=== PATIENT | male | born 1985 | race Caucasian/White ===

== ENCOUNTER 2019-11-07 09:20 | Inpatient (IN) | payer OTHER ==
[2019-11-07] MEDS ORDERED: SODIUM CHLORIDE 0.9% 1,000 ML IV ONE (09:23)
[2019-11-07] MEDS ORDERED: ONDANSETRON 4 MG/2 ML VIAL IVP STA (09:24)
[2019-11-07 09:32] LABS: Basophils % (A) 0 %; Eosinophils # (A) 0.3 k/uL (0-0.7); Eosinophils % (A) 1 %; HCT 49.8 % (39.0-53.0); HGB 17.3 gm/dL (13.0-17.5); Lymphocytes # (A) 2.3 k/uL (1.0-4.8); Lymphocytes % (A) 10 %; MCH 29.7 pg (25.0-35.0); MCHC 34.8 g/dL (31.0-37.0); MCV 85.3 fL (80.0-100.0); Monocytes # (A) 2.1 k/uL (0-1.0); Monocytes % (A) 9 %; Neutrophils # (A) 18.5 k/uL (1.3-7.7); Neutrophils % (A) 79 %; Platelet Count 276 k/uL (150-450); RBC 5.84 m/uL (4.30-5.90); RDW 12.9 % (11.5-15.5); WBC 23.5 k/uL (3.8-10.6)
[2019-11-07] MEDS ORDERED: LORazepam 2 MG/ML INJ IV STA (09:32)
[2019-11-07] MEDS ORDERED: TRIMETHOBENZAMIDE 100 MG/ML 2 ML VIAL IM STA (09:32)
[2019-11-07 09:45] LABS: Ionized Calcium 3.3 mg/dL (4.5-5.3)
[2019-11-07 09:59] LABS: Albumin 5.2 g/dL (3.5-5.0); Calcium 8.9 mg/dL (8.4-10.2); Magnesium 1.3 mg/dL (1.6-2.3); Total Bilirubin 1.4 mg/dL (0.2-1.3); Total Protein 8.6 g/dL (6.3-8.2)
[2019-11-07] MEDS ORDERED: CALCIUM GLUCONATE 2 GM in SODIUM CHLORIDE 0.9% 100 ML IVPB ONE (10:00)
[2019-11-07] MEDS ORDERED: NALOXONE 0.4 MG/ML 1 ML VIAL IV PRN (10:44)
--- NOTE | 2019-11-07 10:44 | ED ---
Nausea/Vomiting/Diarrhea HPI - General Chief complaint: Nausea/Vomiting/Diarrhea Stated complaint: Dehydration Time Seen by Provider: 11/07/19 09:25 Source: patient, EMS Mode of arrival: EMS Limitations: no limitations - History of Present Illness Initial comments: The patient is a 34-year-old male with past history of reflux presents to the emergency room and stating that he had nausea and vomiting for the past 3-4 days. States it's been so severe that he cannot count how many episodes he has had. Denies eating any tainted foods. No sick contacts with similar symptoms. The patient does have contractures of his bilateral upper extremities. Reports to diffuse muscle pain however denies any abdominal pain. No associated diarrhea. Denies hematemesis. Reports to a previous episode in the past which was similar in nature. She required hospitalization in [place] for low calcium. States he had contractures at that time as well. Patient cannot provide any additional history as he is a poor historian. Patient arrives diaphoretic. Denies any chest pain or shortness of breath. Denies dysuria, hematuria or difficult voiding. There are no alleviating, precipitating or modifying factors - Related Data Home Medications Medication Instructions Recorded Confirmed No Known Home Medications 11/07/19 11/07/19 Allergies Allergy/AdvReac Type Severity Reaction Status Date / Time No Known Allergies Allergy Verified 11/07/19 10:52 Review of Systems ROS Statement: Those systems with pertinent positive or pertinent negative responses have been documented in the HPI. ROS Other: All systems not noted in ROS Statement are negative. Past Medical History Past Medical History: GERD/Reflux History of Any Multi-Drug Resistant Organisms: None Reported Past Surgical History: No Surgical Hx Reported Past Psychological History: No Psychological Hx Reported Smoking Status: Current every day smoker Past Alcohol Use History: None Reported Past Drug Use History: Marijuana General Exam Limitations: no limitations General appearance: alert, in distress, other (diaphoretic) Eye exam: Present: normal appearance, PERRL, EOMI. Absent: scleral icterus, conjunctival injection, periorbital swelling ENT exam: Present: normal exam, mucous membranes moist Neck exam: Present: normal inspection. Absent: tenderness, meningismus, lymphadenopathy Respiratory exam: Present: normal lung sounds bilaterally. Absent: respiratory distress, wheezes, rales, rhonchi, stridor Cardiovascular Exam: Present: normal rhythm, tachycardia GI/Abdominal exam: Present: soft, normal bowel sounds. Absent: distended, tenderness, guarding, rebound, rigid Extremities exam: Present: other (contractures bilateral upper extremities) Back exam: Present: normal inspection Neurological exam: Present: alert, oriented X3, CN II-XII intact Skin exam: Present: warm, diaphoretic Course Vital Signs 11/07/19 11/07/19 11/07/19 09:23 09:26 10:48 Temperature 98.8 F Pulse Rate 134 H 111 H 89 Respiratory 18 16 16 Rate Blood Pressure 151/81 155/90 139/85 O2 Sat by Pulse 98 98 99 Oximetry 11/07/19 11/07/19 11:44 13:02 Temperature Pulse Rate 87 85 Respiratory 16 18 Rate Blood Pressure 142/90 140/91 O2 Sat by Pulse 96 97 Oximetry Medical Decision Making - Medical Decision Making The patient placed in room 2. Peripheral IV had been established by EMS is given a liter of normal saline. 12-lead EKG performed. Laboratory studies performed which are remarkable for white count of 23,000. Sodium 132. Chloride 75. Lactic acid 7.2 ionized calcium 3.3. Magnesium 1.3. CK is 2440. Patient was given 1 mg of Ativan followed by 2 g of IV calcium gluconate. Patient also provided with 2 g of magnesium. Revaluation the patient instructed to his heart rate has normalized. Patient states he feels much better and contractures are relaxing. I did recommend hospital admission for continued electrolyte replacement and fluid hydration. Patient did agree to this. Discussed case with Dr. Epperson who accepted admission. Patient is pending a bed on the floor - Lab Data Result diagrams: 11/08/19 06:25 11/08/19 06:25 Lab Results 11/07/19 11/07/19 11/07/19 Range/Units 09:23 09:23 09:23 WBC 23.5 H (3.8-10.6) k/uL RBC 5.84 (4.30-5.90) m/uL Hgb 17.3 (13.0-17.5) gm/dL Hct 49.8 (39.0-53.0) % MCV 85.3 (80.0-100.0) fL MCH 29.7 (25.0-35.0) pg MCHC 34.8 (31.0-37.0) g/dL RDW 12.9 (11.5-15.5) % Plt Count 276 (150-450) k/uL Neutrophils % 79 % Lymphocytes % 10 % Monocytes % 9 % Eosinophils % 1 % Basophils % 0 % Neutrophils # 18.5 H (1.3-7.7) k/uL Lymphocytes # 2.3 (1.0-4.8) k/uL Monocytes # 2.1 H (0-1.0) k/uL Eosinophils # 0.3 (0-0.7) k/uL Basophils # 0.0 (0-0.2) k/uL Sodium 132 L (137-145) mmol/L Potassium 4.0 (3.5-5.1) mmol/L Chloride 75 L (98-107) mmol/L Carbon Dioxide 34 H (22-30) mmol/L Anion Gap 23 mmol/L BUN 52 H (9-20) mg/dL Creatinine 2.28 H (0.66-1.25) mg/dL Est GFR (CKD-EPI)AfAm 42 (>60 ml/min/1.73 sqM) Est GFR (CKD-EPI)NonAf 36 (>60 ml/min/1.73 sqM) Glucose 127 H (74-99) mg/dL Lactic Ac Sepsis Rflx Plasma Lactic Acid Kranthi 7.2 H* (0.7-2.0) mmol/L Calcium 8.9 (8.4-10.2) mg/dL Ionized Calcium Ambar 3.3 L* (4.5-5.3) mg/dL Magnesium 1.3 L (1.6-2.3) mg/dL Total Bilirubin 1.4 H (0.2-1.3) mg/dL AST 93 H (17-59) U/L ALT 26 (4-49) U/L Alkaline Phosphatase 110 (38-126) U/L Creatine Kinase 2440 H* (55-170) U/L Total Protein 8.6 H (6.3-8.2) g/dL Albumin 5.2 H (3.5-5.0) g/dL Lipase 41 (23-300) U/L TSH 0.899 (0.465-4.680) mIU/L PTH Intact (14.0-72.0) pg/mL 11/07/19 11/07/19 Range/Units 09:23 09:45 WBC (3.8-10.6) k/uL RBC (4.30-5.90) m/uL Hgb (13.0-17.5) gm/dL Hct (39.0-53.0) % MCV (80.0-100.0) fL MCH (25.0-35.0) pg MCHC (31.0-37.0) g/dL RDW (11.5-15.5) % Plt Count (150-450) k/uL Neutrophils % % Lymphocytes % % Monocytes % % Eosinophils % % Basophils % % Neutrophils # (1.3-7.7) k/uL Lymphocytes # (1.0-4.8) k/uL Monocytes # (0-1.0) k/uL Eosinophils # (0-0.7) k/uL Basophils # (0-0.2) k/uL Sodium (137-145) mmol/L Potassium (3.5-5.1) mmol/L Chloride (98-107) mmol/L Carbon Dioxide (22-30) mmol/L Anion Gap mmol/L BUN (9-20) mg/dL Creatinine (0.66-1.25) mg/dL Est GFR (CKD-EPI)AfAm (>60 ml/min/1.73 sqM) Est GFR (CKD-EPI)NonAf (>60 ml/min/1.73 sqM) Glucose (74-99) mg/dL Lactic Ac Sepsis Rflx Y Plasma Lactic Acid Kranthi (0.7-2.0) mmol/L Calcium (8.4-10.2) mg/dL Ionized Calcium Ambar (4.5-5.3) mg/dL Magnesium (1.6-2.3) mg/dL Total Bilirubin (0.2-1.3) mg/dL AST (17-59) U/L ALT (4-49) U/L Alkaline Phosphatase (38-126) U/L Creatine Kinase (55-170) U/L Total Protein (6.3-8.2) g/dL Albumin (3.5-5.0) g/dL Lipase (23-300) U/L TSH (0.465-4.680) mIU/L PTH Intact 26.7 (14.0-72.0) pg/mL - EKG Data EKG Comments: EKG demonstrates sinus tachycardia with a ventricular rate of 112. When necessary 112. QRS 88. QTC is 559 (prolonged) Significant baseline artifact. No acute ST segment elevation Disposition Clinical Impression: Dehydration, HILLARY (acute kidney injury), Hypocalcemia, Hyponatremia, Hypomagnesemia, Tachycardia, Lactic acidosis, Elevated creatine kinase level Disposition: ADMITTED IP TO THIS [facility] Condition: Stable Is patient prescribed a controlled substance at d/c from ED?: No Decision to Admit Reason: Admit from EC Decision Date: 11/07/19 Decision Time: 10:44
[2019-11-07] MEDS: MAGNESIUM SULFATE-D5W PMX 1 GM in DEXTROSE/WATER 1 100ML.BAG IVPB SCH ×2 (10:48→11:50)
[2019-11-07 11:43] LABS: Appearance,Urine Clear (Clear); Bilirubin,Urine Negative (Negative); Blood,Urine Moderate (Negative); Color,Urine Yellow; Glucose,Urine (UA) Negative (Negative); Hyaline Casts,Urine 10 /lpf (0-2); Ketones,Urine 1+ (Negative); Leukocyte Esterase,Urine Moderate (Negative); Mucus,Urine Occasional /hpf; Nitrite,Urine Negative (Negative); Protein,Urine 1+ (Negative); RBC,Urine 2 /hpf (0-5); Specific Gravity,Urine 1.013 (1.001-1.035); Squamous Epithelial Cell,Urine 1 /hpf (0-4); Urobilinogen,Urine <2.0 mg/dL (<2.0); WBC,Urine 10 /hpf (0-5)
[2019-11-07 11:52] LABS: Amphetamine Screen,Urine Not Detected (NotDetected); Barbiturate Screen,Urine Not Detected (NotDetected); Benzodiazepines Screen,Urine Not Detected (NotDetected); Cocaine Screen,Urine Not Detected (NotDetected); Methadone Screen, Urine Not Detected (NotDetected); Opiate Screen,Urine Not Detected (NotDetected); Oxycodone Screen, Urine Not Detected (NotDetected); Phencyclidine Screen,Urine Not Detected (NotDetected); Tricyclic Antidepressant,Urine Not Detected (NotDetected); Urn Cannabinoid Scrn Detected (NotDetected)
[2019-11-07] MEDS: SODIUM CHLORIDE 0.9% 1,000 ML IV SCH ×2 (13:00→20:47)
--- NOTE | 2019-11-07 19:41 | HP ---
HISTORY AND PHYSICAL CHIEF COMPLAINT: Three-day history of nausea and vomiting with carpopedal spasm. 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 Three days ago he became ill at work and went home and started to have nausea and vomiting, and he has been vomiting ever since. He came into the emergency room with carpopedal spasm in both upper extremities. He had a lactic acid of 7.2 and his calcium was 8.9. Creatinine was 2.2. CK was 2400. History is very bizarre. He has never had anything like this before. He has had no abdominal pain, gastritis, etc. REVIEW OF SYSTEMS: He has had no headaches, neurologic problems, difficulty with vision or hearing, chest pain, cough, hemoptysis, palpitations, murmurs, rheumatic fever, hypertension, orthopnea, PND, hematemesis, melena, hematochezia, jaundice, hepatitis, renal failure, hematuria, frequency, urgency, dysuria, diabetes, etc. Past medical history, family history, and personal and social histories are all otherwise unremarkable or noncontributory. He does have some problems with GERD. He is not taking any medicine at home and he is not allergic to any. He has had no surgery. He smokes marijuana some and smokes a pack of cigarettes a day. PHYSICAL EXAMINATION: Blood pressure is 139/85 with a pulse of 89, respirations of 16, and his pulse ox was 99% on room air. Head, ears, eyes, nose, mouth and throat were normal. Neck veins were not distended. The chest was clear. The cardiac exam was normal. Abdomen was soft and nontender. Extremities were normal. Neurologically he was intact. IMPRESSION: 1. Nausea and vomiting, probably due to gastroenteritis. 2. Hypomagnesemia. 3. Hypocalcemia. 4. Probable prerenal azotemia. 5. Rhabdomyolysis. 6. Lactic acidosis. PLAN: 1. Bed rest. 2. IV fluids. 3. Follow laboratory studies. 4. Antiemetics. MMODL / LUCYN: [id number] /
[2019-11-07] MEDS: NICOTINE 21MG/24HR PATCH TRANSDERM SCH (19:53)
[2019-11-07 22:28] VITALS: RESP 16
[2019-11-08] MEDS: SODIUM CHLORIDE 0.9% 1,000 ML IV SCH (06:49)
[2019-11-08 07:08] LABS: Basophils % (A) 0 %; Eosinophils # (A) 0.1 k/uL (0-0.7); Eosinophils % (A) 1 %; HCT 47.4 % (39.0-53.0); HGB 15.7 gm/dL (13.0-17.5); Lymphocytes % (A) 31 %; MCH 29.3 pg (25.0-35.0); MCHC 33.2 g/dL (31.0-37.0); MCV 88.3 fL (80.0-100.0); Monocytes # (A) 1.1 k/uL (0-1.0); Monocytes % (A) 11 %; Neutrophils # (A) 5.5 k/uL (1.3-7.7); Neutrophils % (A) 56 %; Platelet Count 188 k/uL (150-450); RBC 5.36 m/uL (4.30-5.90); RDW 13.1 % (11.5-15.5); WBC 9.7 k/uL (3.8-10.6)
[2019-11-08 07:18] LABS: Ionized Calcium 4.6 mg/dL (4.5-5.3)
[2019-11-08 07:43] LABS: African American GFR (CKD) >90 (>60 ml/min/1.73 sqM); Anion Gap 9 mmol/L; Blood Urea Nitrogen 23 mg/dL (9-20); Calcium 8.7 mg/dL (8.4-10.2); Carbon Dioxide 31 mmol/L (22-30); Chloride 93 mmol/L (98-107); Glucose 91 mg/dL (74-99); Magnesium 2.3 mg/dL (1.6-2.3); Non-African American GFR(CKD) >90 (>60 ml/min/1.73 sqM); Potassium 3.9 mmol/L (3.5-5.1); Sodium 133 mmol/L (137-145)
[2019-11-08] MEDS: NICOTINE 21MG/24HR PATCH TRANSDERM SCH (09:17)
[2019-11-08 09:23] VITALS: BP 129/74; PULSE 70; TEMP 98.4
--- NOTE | 2019-11-08 23:52 | DS ---
DISCHARGE SUMMARY CHIEF COMPLAINT: Carpopedal spasms and electrolyte imbalance. HISTORY OF PRESENT ILLNESS AND PHYSICAL EXAM: Details of this man's history and physical can be found in the initial workup. LABORATORY STUDIES: While he was in the hospital, he had laboratory studies, details of which can be found in the laboratory section of his chart. COURSE IN HOSPITAL: After admission, he was placed on bedrest, started on intravenous fluids and management of his hypomagnesemia, hypokalemia and hypocalcemia. Nausea and vomiting stopped. He had no further symptoms. Laboratory studies were normal the next day and it was felt he could go home. He will go home on usual activity, diet, no medications. He will be followed up in several days in the office. FINAL DIAGNOSES: 1. Intractable nausea and vomiting. 2. Dehydration. 3. Hypokalemia. 4. Hypomagnesemia. 5. Hypocalcemia. OPERATIONS: None. CONSULTATION: None. He is improved. MMOSCAR / DARCIE: [id number] /
== END 2019-11-08 12:55 | disposition home or self-care (01) | DRG 392 ==
LOC: EC 09:20 → 3SCARD 10:44
PROVIDERS: ADMIT Family Medicine; ATTEND Family Medicine
DX: K52.9 Noninfective gastroenteritis and colitis, unspecified (principal); N17.9 Acute kidney failure, unspecified; E87.1 Hypo-osmolality and hyponatremia; E87.2 Acidosis; M62.82 Rhabdomyolysis; R29.0 Tetany; E83.42 Hypomagnesemia; E83.51 Hypocalcemia; E86.0 Dehydration; E87.6 Hypokalemia; F17.200 Nicotine dependence, unspecified, uncomplicated; Z11.59 Encounter for screening for other viral diseases
CPT/HCPCS: 36415; 80048; 80053; 80306; 81001; 82330; 82550; 83605; 83690; 83735; 83970; 84443; 85025; 87635; 93005; 96361; 96365; 96366; 96368; 96372; 96375; 99285